=== PATIENT | female | born 1960 | race Hispanic/Latino ===

== ENCOUNTER 2018-07-04 04:50 | Inpatient (IN) | payer MEDICAID ==
[~2018-07-04] VITALS: Ht 147.3 cm; Wt 53.9 kg
[2018-07-04 05:32] LABS: BASOPHILS % (AUTO) 0.5 % (0.0-5.0); MEAN CORPUSCULAR HEMOGLOBIN 26.6 pg (27.0-33.0); MEAN CORPUSCULAR HGB CONC 32.8 g/dL (32.0-36.0); MONOCYTES % (AUTO) 7.9 % (3.0-13.0); NEUTROPHILS % (AUTO) 71.6 % (40.0-77.0); PLATELET COUNT (AUTO) 223 K/uL (130-400); RED BLOOD CELL COUNT(AUTO) 4.94 MIL/uL (4.00-5.50); RED CELL DISTRIBUTION WIDTH 14.8 % (11.0-15.5); WHITE BLOOD COUNT (AUTO) 8.3 K/uL (4.8-10.8)
[2018-07-04 05:37] LABS: CREATININE 0.6 mg/dL (0.5-1.5); POTASSIUM 4.4 mmol/L (3.5-5.1)
[2018-07-04 05:38] LABS: INR 0.95 (0.85-1.15); PARTIAL THROMBOPLASTIN TIME 25.7 SEC (26.3-35.5)
[2018-07-04] MEDS ORDERED: NITROGLYCERIN 1GM/1 INCH PACKET TD ONE (05:43)
[2018-07-04] MEDS ORDERED: ASPIRIN 325 MG TABLET ONE (05:43)
[2018-07-04 05:51] LABS: B-TYPE NATRIURETIC PEPTIDE 34 pg/mL (0-100)
[2018-07-04] MEDS ORDERED: LIDOCAINE HCL 2% VISCOUS 15 ML UDCUP ONE (06:20)
[2018-07-04] MEDS ORDERED: MAGNESIUM HYDROXIDE 30 ML/UDCUP ONE (06:20)
[2018-07-04 08:00] VITALS: BP 189/96
[2018-07-04] MEDS ORDERED: MORPHINE SULFATE 2 MG/ML 1ML SYG IV PRN (10:00)
[2018-07-04] MEDS ORDERED: CLONIDINE HCL 0.1 MG TABLET PO PRN (10:15)
[2018-07-04] MEDS: TRAMADOL HCL 50 MG TABLET PO SCH ×3 (10:30→22:23)
[2018-07-04] MEDS: SODIUM CHLORIDE 0.9% 1000ML 1,000 ML IV SCH ×2 (10:57→23:30)
[2018-07-04] MEDS: HYDROCODONE/ACETAMINOPHEN 5/325 MG TAB PO PRN ×2 (10:58→18:03)
[2018-07-04] MEDS ORDERED: AMLO5TAB7 PO (11:17)
[2018-07-04] MEDS ORDERED: MONT10TA21 PO (11:17)
[2018-07-04] MEDS ORDERED: HYDR-4068 PO (11:17)
[2018-07-04] MEDS ORDERED: GABA-529 PO (11:17)
[2018-07-04] MEDS ORDERED: LISI40TA4 PO (11:17)
[2018-07-04] MEDS ORDERED: LEVO75TA10 PO (11:17)
[2018-07-04] MEDS ORDERED: METO50TA18 PO (11:17)
[2018-07-04] MEDS ORDERED: ESOM20CA31 PO (11:17)
[2018-07-04 12:00] VITALS: BP 138/72
[2018-07-04 16:00] VITALS: BP 151/77
[2018-07-04] MEDS: PANTOPRAZOLE SODIUM 40 MG TABLET.DR PO SCH (18:03)
[2018-07-04 20:00] VITALS: BP 150/75
[2018-07-04 23:52] VITALS: BP 147/81
[2018-07-05 04:00] VITALS: BP 119/66
[2018-07-05] MEDS: TRAMADOL HCL 50 MG TABLET PO SCH ×4 (04:30→22:30)
[2018-07-05] MEDS: SODIUM CHLORIDE 0.9% 1000ML 1,000 ML IV SCH ×2 (05:47→15:47)
[2018-07-05] MEDS: PANTOPRAZOLE SODIUM 40 MG TABLET.DR PO SCH ×2 (06:44→17:27)
[2018-07-05 08:07] VITALS: BP 139/81
[2018-07-05] MEDS: METOPROLOL TARTRATE 50 MG TAB PO SCH ×2 (09:13→20:37)
[2018-07-05] MEDS: AMLODIPINE BESYLATE 5 MG TAB PO SCH (09:13)
[2018-07-05] MEDS: GABAPENTIN 100 MG CAPSULE PO SCH ×3 (09:13→20:38)
[2018-07-05] MEDS: LEVOTHYROXINE 75 MCG TABLET PO SCH (09:13)
[2018-07-05] MEDS: LISINOPRIL 40 MG TABLET PO SCH (09:14)
[2018-07-05] MEDS: ENOXAPARIN SODIUM 30 MG/0.3 ML SQ SCH (09:14)
[2018-07-05] MEDS: HYDROCODONE/ACETAMINOPHEN 10/325 MG TAB PO PRN ×2 (09:15→20:41)
[2018-07-05 12:02] VITALS: BP 148/69
[2018-07-05 16:21] VITALS: BP 144/76
[2018-07-05 20:24] VITALS: BP 108/57
[2018-07-05] MEDS ORDERED: MONTELUKAST SODIUM 10 MG TAB PO SCH (21:00)
[2018-07-06 00:28] VITALS: BP 131/76
[2018-07-06 04:28] VITALS: BP 113/63
[2018-07-06] MEDS: TRAMADOL HCL 50 MG TABLET PO SCH ×2 (04:30→10:30)
[2018-07-06] MEDS: SODIUM CHLORIDE 0.9% 1000ML 1,000 ML IV SCH (04:37)
[2018-07-06 04:59] LABS: BASOPHILS % (AUTO) 0.7 % (0.0-5.0); EOSINOPHILS % (AUTO) 1.8 % (0.0-8.0); HEMATOCRIT 37.7 % (36-48); LYMPHOCYTES % (AUTO) 37.5 % (21.0-51.0); MEAN CORPUSCULAR HEMOGLOBIN 26.4 pg (27.0-33.0); MEAN CORPUSCULAR HGB CONC 32.4 g/dL (32.0-36.0); MEAN CORPUSCULAR VOLUME 81.7 fL (79-99); MONOCYTES % (AUTO) 14.4 % (3.0-13.0); NEUTROPHILS % (AUTO) 45.6 % (40.0-77.0); PLATELET COUNT (AUTO) 191 K/uL (130-400); RED BLOOD CELL COUNT(AUTO) 4.62 MIL/uL (4.00-5.50); RED CELL DISTRIBUTION WIDTH 14.6 % (11.0-15.5); WHITE BLOOD COUNT (AUTO) 4.4 K/uL (4.8-10.8)
[2018-07-06 05:15] LABS: ALBUMIN 3.2 g/dL (3.5-5.0); BILIRUBIN,TOTAL 0.2 mg/dL (0.2-1.0); CREATININE 0.6 mg/dL (0.5-1.5); POTASSIUM 3.5 mmol/L (3.5-5.1); TOTAL PROTEIN, SERUM 6.7 g/dL (6.0-8.3)
[2018-07-06] MEDS: LEVOTHYROXINE 75 MCG TABLET PO SCH (06:10)
[2018-07-06] MEDS: PANTOPRAZOLE SODIUM 40 MG TABLET.DR PO SCH (06:10)
[2018-07-06] MEDS: HYDROCODONE/ACETAMINOPHEN 10/325 MG TAB PO PRN (06:14)
[2018-07-06 07:00] VITALS: BP 148/82
[2018-07-06] MEDS ORDERED: MEGESTROL 400 MG/10 ML UDCUP PO SCH (09:00)
[2018-07-06] MEDS: METOPROLOL TARTRATE 50 MG TAB PO SCH (09:09)
[2018-07-06] MEDS: LISINOPRIL 40 MG TABLET PO SCH (09:10)
[2018-07-06] MEDS: AMLODIPINE BESYLATE 5 MG TAB PO SCH (09:10)
[2018-07-06] MEDS: GABAPENTIN 100 MG CAPSULE PO SCH (09:10)
[2018-07-06] MEDS: ENOXAPARIN SODIUM 30 MG/0.3 ML SQ SCH (09:14)
[2018-07-06 11:00] VITALS: BP 156/87
== END 2018-07-06 15:06 | disposition home or self-care (01) | DRG 203 ==
LOC: EDH 04:50 → EDHIP 04:51 → 3BH 08:21
PROVIDERS: ADMIT Internal Medicine; ATTEND Internal Medicine
DX: M94.0 Chondrocostal junction syndrome [Tietze] (principal); E03.9 Hypothyroidism, unspecified; K21.9 Gastro-esophageal reflux disease without esophagitis; E78.5 Hyperlipidemia, unspecified; I10 Essential (primary) hypertension
CPT/HCPCS: 36415; 71045; 73020; 80048; 80053; 83880; 84484; 85025; 85610; 85730; 93005; J1650; J7030

== ENCOUNTER → 2021-07-12 | Outpatient (CLI) | payer MEDICAID ==
[~2021-07-12] MED LIST: AMLO-257 PO; ESOM20CA31 PO; GABA-529 PO; HYDR-4068 PO; LEVO75TA10 PO; LISI40TA9 PO; METO50TA18 PO; MONT10TA21 PO
== END | disposition home or self-care (01) ==
LOC: RAH 11:47
PROVIDERS: ATTEND Family Medicine
DX: M54.50 Low back pain, unspecified (principal)
CPT/HCPCS: 72100

== ENCOUNTER 2023-03-29 17:30 | Emergency (ER) | payer MEDICAID ==
[~2023-03-29] VITALS: Ht 165.1 cm; Wt 65.8 kg
[~2023-03-29 17:30] MED LIST changes: +MONT-47 PO; -MONT10TA21 PO
[2023-03-29 18:57] VITALS: BP 150/83
== END 2023-03-29 19:21 | disposition left against medical advice (07) ==
LOC: EDH 17:30
DX: F41.9 Anxiety disorder, unspecified (principal); Z53.21 Procedure and treatment not carried out due to patient leaving prior to being seen by health care provider